=== PATIENT | female | born 1995 | race Caucasian/White ===

== ENCOUNTER 2020-05-08 11:31 | Emergency (ER) | payer SELFPAY ==
[~2020-05-08] VITALS: Ht 165.1 cm; Wt 75.3 kg
[2020-05-08 11:36] VITALS: BP 150/98
--- NOTE | 2020-05-08 11:39 | NUR ---
PT AMBULATED TO BED 12, STEADY GAIT.
--- NOTE | 2020-05-08 12:00 | NUR ---
24 Y/O FEMALE C/O HYPEREMESIS , PT STATES SHE TOOK A TEST ONE MONTH AGO AND IT WAS POSITIVE. HCG IN ER IS +. PT STATES SHES UNABLE TO KEEP ANY FLUIDS/FOOD DOWN, AND IS BEGINNING TO FEEL WEAK. DENIES ANY VAGINAL BLEEDING OR STOMACH PAIN. PT STATES SHE IS HAVING 7/10 BACK PAIN. AAOX4. VSS.
[2020-05-08] MEDS ORDERED: NACL 0.9% 1,000 ML IV ONE (12:15)
[2020-05-08] MEDS ORDERED: ONDANSETRON 4 MG/2 ML VIAL IVP ONE (12:15)
--- NOTE | 2020-05-08 12:30 | NUR ---
lab at bedside.
[2020-05-08 12:43] LABS: BASOPHILS % (AUTO) 0.3 % (0.0-2.0); EOSINOPHILS % (AUTO) 0.1 % (0.0-4.0); HEMATOCRIT 44.5 % (36-48); HEMOGLOBIN 14.7 g/dL (12.0-16.0); LYMPHOCYTES # (AUTO) 1.7 K/uL (2.5-16.5); LYMPHOCYTES % (AUTO) 11.4 % (20.5-51.1); MEAN CORPUSCULAR HEMOGLOBIN 30 pg (27-31); MEAN CORPUSCULAR HGB CONC 33 g/dL (33-37); MEAN CORPUSCULAR VOLUME 91.1 fL (80-94); MONOCYTES # (AUTO) 0.7 K/uL (0.8-1.0); NEUTROPHILS # (AUTO) 12.1 K/uL (1.8-7.7); NEUTROPHILS % (AUTO) 83.2 % (42.2-75.2); PLATELET COUNT (AUTO) 296 K/uL (140-450); RED BLOOD CELL COUNT(AUTO) 4.88 MIL/uL (4.20-5.40); RED CELL DISTRIBUTION WIDTH 13.9 % (11.6-13.7); WHITE BLOOD COUNT (AUTO) 14.5 K/uL (4.8-10.8)
[2020-05-08 13:10] LABS: APPEARANCE,URINE CLEAR (CLEAR); BILIRUBIN,URINE 2+ (NEGATIVE); BLOOD, URINE 3+ (NEGATIVE); COLOR,URINE DARK YELLOW (YELLOW); LEUKOCYTE ESTERASE ,URINE NEGATIVE (NEGATIVE); NITRITE, URINE NEGATIVE (NEGATIVE); UGLUCOSE NEGATIVE (NEGATIVE)
[2020-05-08 13:51] LABS: RBC,URINE 11-20 (MOD) /HPF (0-5); WBC,URINE 0-5 /HPF (0-5)
[2020-05-08 13:54] LABS: ALBUMIN 4.4 g/dL (3.4-5.0); ANION GAP 17.4 (8-16); CARBON DIOXIDE 22.1 mmol/L (21-32); CREATININE 0.9 mg/dL (0.6-1.3); POTASSIUM 3.5 mmol/L (3.5-5.1); TOTAL BILIRUBIN 0.5 mg/dL (0.0-1.0)
[2020-05-08 15:32] VITALS: BP 150/98
--- NOTE | 2020-05-08 15:32 | NUR ---
Patient discharged with v/s stable. Written and verbal after care instructions given and explained. Patient alert, oriented and verbalized understanding of instructions. Ambulatory with steady gait. All questions addressed prior to discharge. ID band removed. Patient advised to follow up with PMD. Rx of DICLEGIS given. Patient educated on indication of medication including possible reaction and side effects. Opportunity to ask questions provided and answered.
== END 2020-05-08 15:32 | disposition home or self-care (01) ==
LOC: MED 11:31
DX: O21.0 Mild hyperemesis gravidarum (principal); O26.891 Other specified pregnancy related conditions, first trimester; R10.9 Unspecified abdominal pain; R19.7 Diarrhea, unspecified; R03.0 Elevated blood-pressure reading, without diagnosis of hypertension
CPT/HCPCS: 36415; 80053; 81001; 81025; 84702; 85025; 96361; 96374; 99283; J2405; J7030